=== PATIENT | male | born 1980 | race Two or more races ===

== ENCOUNTER 2025-07-04 12:12 | Emergency (ER) | payer MEDICAID, OTHER ==
[~2025-07-04] VITALS: Ht 180.3 cm; Wt 74.3 kg
[2025-07-04 12:16] VITALS: BP 99/74
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
[2025-07-04 14:20] VITALS: PULSE 112; RESP 17; TEMP 99; O2SAT 98
[2025-07-04] MEDS ORDERED: IBUP-1456 PO (14:20)
== END 2025-07-04 14:28 | disposition home or self-care (01) ==
LOC: ER 12:12
DX: S39.012A Strain of muscle, fascia and tendon of lower back, initial encounter (principal); V43.52XA Car driver injured in collision with other type car in traffic accident, initial encounter; Y93.89 Activity, other specified; Y92.410 Unspecified street and highway as the place of occurrence of the external cause; Y99.8 Other external cause status
CPT/HCPCS: 72100